=== PATIENT | female | born 1950 | race Caucasian/White ===

== ENCOUNTER → 2022-12-17 13:14 | Outpatient (CLI) | payer MEDICARE, SELFPAY ==
--- NOTE | 2022-12-17 13:34 | XR_ITS ---
FINAL REPORT CLINICAL HISTORY: pre-op testing to have bunion removed and hammer toe repaired, hx of high bp FINDINGS: LEFT FOOT: Three views of the left foot were obtained. There is no acute fracture or dislocation. There are mild degenerative changes. There is hallux valgus deformity. There is a 2nd digit hammertoe. Mild pes planus deformity is noted. IMPRESSION: Chronic and degenerative changes as above. Reviewed, Interpreted and Dictated by Dayo Corral III, MD Transcribed by Chasity Buck Authenticated and [facility]
--- NOTE | 2022-12-17 13:34 | XR_ITS ---
FINAL REPORT CLINICAL HISTORY: pre-op testing to have bunion removed and hammer toe repaired, hx of high bp FINDINGS: Two views of the chest were obtained. The heart size and pulmonary vascularity are within normal limits. 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 No acute pulmonary abnormality is identified. There is no pneumothorax. The bony thorax is intact. IMPRESSION: No active cardiopulmonary disease. Reviewed, Interpreted and Dictated by Dayo Corral III, MD Transcribed by Chasity Buck Authenticated and [facility]
--- NOTE | 2022-12-17 14:05 | ECG_ITS ---
APPROVED REPORT Exam: Resting ECG HR:63 bpm ECG Measurements Heart Rate 63 AXES WA 165 P 49 QRSd 105 QRS -58 QT 398 T 15 QTc 405 Conclusion SINUS RHYTHM PATTERN CONSISTENT WITH PULMONARY DISEASE LEFT ANTERIOR FASCICULAR BLOCK [QRS AXIS <= -45, QR IN I, RS IN II] ABNORMAL ECG UNCONFIRMED REPORT Electronically signed by : Сергей Brown MD 12/17/2022 20:26:25
[2022-12-17 14:21] LABS: Basophils % 0.2 % (0.1-2.0); Eosinophils # 0.1 K/mm3 (0.0-0.4); Eosinophils % 1.2 % (0.1-12.0); Hematocrit 45.6 % (37.0-47.0); Hemoglobin 15.3 g/dL (12.2-16.2); Lymphocytes # 2.9 K/mm3 (0.7-4.5); Lymphocytes % 32.2 % (10-50); Mean Corpuscular HGB Conc 33.6 g/dL (31.8-35.4); Mean Corpuscular Hemoglobin 30.3 pg (27.0-31.2); Mean Corpuscular Volume 90.4 fl (81-99); Mean Platelet Volume 8.9 fl (7.4-10.4); Monocytes # 0.6 K/mm3 (0.1-1.0); Monocytes % 6.2 % (1.7-9.3); Neutrophils # 5.5 K/mm3 (1.8-7.8); Neutrophils % 60.1 % (37.0-80.0); Platelet Count 272 K/mm3 (142-424); Red Blood Count 5.05 M/mm3 (4.20-5.40); Red Cell Distribution Width 13.2 % (11.5-17.5); White Blood Count 9.1 K/mm3 (4.8-10.8)
[2022-12-17 15:46] LABS: Alanine Aminotransferase 36 U/L (12-78); Albumin Level 4.2 g/dl (3.5-5.0); Albumin/Globulin Ratio 1.6 (1.1-1.8); Alkaline Phosphatase 71 U/L (38-126); Anion Gap 13.2 mEq/L (5-15); Aspartate Amino Transferase 31 U/L (14-36); Bilirubin,Total 0.5 mg/dl (0.2-1.3); Blood Urea Nitrogen 18 mg/dl (7-17); Carbon Dioxide 27 mmol/L (22.0-30.0); Chloride 104 mmol/L (98-107); Estimated Glomerular Filt Rate 71 ml/min (>60); GFR (African American) 85 ML/MIN (>60); Globulin 2.7 g/dL (1.3-3.2); Glucose 97 mg/dl (74-100); Potassium 4.2 mmoL/L (3.5-5.1); Sodium 140 mmol/L (136-145); Total Protein,Serum 6.9 g/dl (6.3-8.2)
== END ==
PROVIDERS: PCP Physician Assistant; Visit Provider Podiatrist
DX: Z01.818 Encounter for other preprocedural examination (principal)
CPT/HCPCS: 36415; 71046; 73630; 80053; 85025; 93005

== ENCOUNTER 2023-01-02 07:47 | Day surgery (SDC) | payer MEDICARE, SELFPAY ==
[2022-12-29 14:45] VITALS: BMI 30.2
[2023-01-02] VITALS (7 sets, daily range): BP systolic 122–135; BP diastolic 60–81; PULSE 64–70; RESP 16–18; TEMP 36.3–43; O2SAT 95–100
--- NOTE | 2023-01-02 11:58 | EXP.ANES.CKL ---
[facility] Disclaimer: The information contained in this section may have been updated after the patient was seen, as this information can be updated by other users. Medical History Cervical cancer GERD (gastroesophageal reflux disease) History of anemia Hypertension Surgical History History of hysterectomy Family History Other Family history of diabetes mellitus type II Social History Smoking Status: Never smoker alcohol intake: current substance use type: denies use current occupational status: retired Travel in the last 8 weeks: None [facility] Anesthesia Checklist Patient Identification Patient Identification: Arm Band Structural Data Admitted From: Home Planned Operative Procedure/s: Left Lapidus Bunionectomy Consent for Planned Operative Procedure(s) Verified: Yes Verified Documents: Surgical Consent NPO Status Verified Time NPO: 00:00 Additional verifications Anesthesia Reactions: No Hx Blood Transfusions: No Blood Transfusion Reaction: No Airway Assessment C-Spine Mobility Assessed: Yes TMJ Mobility Assessed: Yes Dentition: Good Dentition Neurological Assessment Level of Consciousness: Awake and Alert Anesthesia Plan Anesthesia Risk discussed: Yes Anesthesia Plan: Verified ASA Class: II Anesthesia Type: MAC w/Block (Left Popliteal/Adductor Canal Block. Risks/benefits explained. Pt verbalized understanding)
--- NOTE | 2023-01-02 13:35 | EXP.OP.NOTE ---
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 Discussion with the patient to confirm the planned procedures to be performed and this Left foot was Initialed. All questions were answered to the patient's satisfaction. She has a rolling knee scooter, crutches, and a walker. Patient was then evaluated by anesthesia department. Patient was wheeled to the operative room and placed on the operating table in the supine position. The operative site was clearly marked and then prepped and draped in the usual aseptic manner. Timeout was performed in the room and we confirmed the planned procedure and the patient and we all were in agreement. The attention was directed to the patient's surgical foot and Esmarch bandage used to extended patient's foot and ankle and the tourniquet inflated to 250 mils mercury above the malleoli. LAPIDUS Correction with bunionectomy LEFT side: A dorsal linear longitudinal incision was made from the metatarsal cuneiform joint following and medial with the extensor hallucis longus tendon to the dorsal aspect of the proximal hallux. Incision was deepened to subcutaneous tissues being careful to preserve protect vital neurovascular structures and bleeders cauterized with the Bovie as necessary. Attention was directed to the first metatarsal phalangeal joint where a dorsal linear longitudinal capsulotomy was made medial and parallel with the extensor hallucis longus tendon. The medial eminence and dorsal head of the first metatarsal were remodeled with sagittal bone saw. At this point blunt and sharp dissection was carried down to the first interspace and the fibular sesamoid was freed of soft tissue attachments and performed a lateral capsulotomy. There was good range of motion noted at the first MPJ at this level. Attention now was directed to the metatarsal cuneiform joint which was dissected down to the joint capsule and freed of soft tissue attachments. Sagittal bone saw was used to resect portion of the metatarsal cunifeiform joint carlitage and bone in the multiple planes. At this point the base of the metatarsal and the cuneiform were placed in proximity to each other with bleeding sides in a corrected position, reducing the Intermetatarsal angle and rotation correction managed; and fixation was accomplished using a cannulated screw and a speed staple. MAHESH OSTEOTOMY: Left foot Mahesh osteomy is performed next to correct hallux interphalangeus. Dissected subcutaneous tissues and periosteum of proximal hallux. Wedge of bone was resected from the proximal hallux , leaving the lateral cortex intact; then bone was feathered down with sagittal saw to reapproximate the hallux. #10 staple used to fixate and reduce the osteotomy in good alignment. There is good alignment noted for the entire correction of the surgical procedures and it was deemed to be appropriate for closure so irrigated the wound with copious amount of sterile normal saline and then closed in layers with 2-0 Vicryl 3-0 Vicryl and 3-0 nylon. --- ---- ------ ------- -------- LEFT SECOND HAMMERTOE CORRECTION Left foot Second hammertoe correction: Attention was directed to the second toe. A dorsal linear linear logical incision was made on the dorsal aspect of the proximal inner phalangeal joint and extended to the metatarsal phalangeal joint. Care was taken to preserve protect vital neurovascul
--- NOTE | 2023-01-02 14:48 | SUR.PHASEII ---
Pt has rolling knee scooter, crutches and a walker at home. Pt sent home w/ polar pac, educated on use. Reviewed DC instructions w/ pt and friend at bedside. Both verbalized understanding. Questions answered appropriately. No further needs at this time.
== END 2023-01-02 14:30 | disposition home or self-care (01) ==
PROVIDERS: PCP Physician Assistant; Visit Provider Podiatrist
DX: M21.612 Bunion of left foot (principal); M20.12 Hallux valgus (acquired), left foot; M20.42 Other hammer toe(s) (acquired), left foot; M79.672 Pain in left foot; M20.5X1 Other deformities of toe(s) (acquired), right foot
CPT/HCPCS: 28285; 28297; 28705; 96374; C1713; C1734; J2704